=== PATIENT | male | born 1995 | race Caucasian/White ===

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

== ENCOUNTER 2017-10-21 16:57 | Emergency (ER) | payer OTHER ==
--- NOTE | 2017-10-21 17:24 | EDPHY ---
H & P Stated Complaint: wisdom teeth removed, increasing pain Time Seen by Provider: 10/21/17 17:20 HPI/ROS: Chief complaint: Pain after wisdom teeth removal History of present illness: This is a 22-year-old male who presents to the emergency department for evaluation of pain after having his wisdom teeth removed. His to lower wisdom teeth were removed a week ago. Apparently was somewhat traumatic, drill bit did break off and get stuck in his soft tissue. Ultimately removed. States pain is been persistent since then. Initially treated with Percocet and then with Tylenol 3. He has followed up with his oral surgeon who states he has healing well, no recommended follow-up at this time. He denies associated signs or symptoms including no fevers, no trismus, no trouble swallowing or breathing, no facial swelling. - Medical/Surgical History Hx Asthma: No Hx Chronic Respiratory Disease: No Hx Diabetes: No Hx Cardiac Disease: No Hx Renal Disease: No Hx Cirrhosis: No Hx Alcoholism: No Hx HIV/AIDS: No Hx Splenectomy or Spleen Trauma: No Other PMH: Eye surg, hand surg - Social History Smoking Status: Never smoked - Physical Exam Exam: General: Alert, nontoxic Skin: No erythema or edema of the face or neck. ENT: Tympanic membranes, external auditory canals, external ears and surrounding soft tissue including over the mastoids are unremarkable. Nasopharynx is not injected. There is no rhinorrhea. Oropharynx is not injected. There is no edema. There is no exudate. There is no asymmetry. Surgical incisions sites in the mouth appear to be healing well, no pustular discharge. The uvula is midline. No elevation of the tongue. There is no hoarseness, no drooling, no trismus, no stridor. Constitutional: Initial Vital Signs Temperature (C) 36.4 C 10/21/17 17:00 Heart Rate 74 10/21/17 17:00 Respiratory Rate 18 10/21/17 17:00 Blood Pressure 103/83 H 10/21/17 17:00 O2 Sat (%) 97 10/21/17 17:00 O2 Delivery Mode Room Air Allergies/Adverse Reactions: peanut Allergy (Verified 10/21/17 16:59) soy Allergy (Verified 10/21/17 16:59) Home Medications: Medication Instructions Recorded Amoxicillin Trihydrate [Amoxil] 500 mg PO TID 7 Days cap 10/21/17 Hydrocodone/APAP 5/325 [[place] 1 tab PO Q6H #12 tab 10/21/17 5/325 (*)] Medical Decision Making ED Course/Re-evaluation: Patient seen under the supervision of my secondary supervising physician Dr. Cindy Zheng. Patient presents with dental pain after wisdom teeth extraction. He is nontoxic. Given persistence of pain I will start him on amoxicillin for potential infection. Pain management at home has been discussed. He is referred to an oral surgeon or asked to follow up with his oral surgeon. Return precautions were given. Differential Diagnosis: Included but not limited to postoperative pain, dry socket syndrome, infection including abscess formation Departure - Departure Disposition: Home, Routine, Self-Care Clinical Impression: Toothache Condition: Good Instructions: Toothache (ED) Additional Instructions: Please follow-up with an oral surgeon on Monday for recheck In regards to pain control see the following: Use ibuprofen [600] mg [3] times a day for the next 2-3 days for pain In addition You have been prescribed [[place]] for pain. [[place]] contains Tylenol, do not take extra Tylenol/acetaminophen/Apap with it. It is sedating. Take antibiotics as prescribed until finished, I recommend taking a probiotic with the antibiotic such as Culturelle If symptoms worsen or new symptoms develop return to the emergency room for recheck Referrals: NONE *PRIMARY CARE P,. [Primary Care Provider] - As per Instructions Lew Kapoor DDS [Doctor of Dental Surgery] - As per Instructions Prescriptions: Amoxicillin Trihydrate [Amoxil] 500 mg PO TID 7 Days cap Hydrocodone/APAP 5/325 [[place] 5/325 (*)] 1 tab PO Q6H #12 tab
[2017-10-21 17:36] VITALS: BP 110/70
== END 2017-10-21 17:37 | disposition home or self-care (01) ==
DX: K08.89 Other specified disorders of teeth and supporting structures (principal); Z91.010 Allergy to peanuts

== ENCOUNTER 2018-02-03 22:52 | Emergency (ER) | payer OTHER ==
[2018-02-03 23:01] VITALS: BP 114/69
--- NOTE | 2018-02-03 23:07 | EDPHY ---
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[employer] Source: Patient Exam Limitations: No limitations - Personal History Current Tetanus/Diphtheria Vaccine: Yes - Medical/Surgical History Hx Asthma: Yes Hx Chronic Respiratory Disease: No Hx Diabetes: No Hx Cardiac Disease: No Hx Renal Disease: No Hx Cirrhosis: No Hx Alcoholism: No Hx HIV/AIDS: No Hx Splenectomy or Spleen Trauma: No Other PMH: Eye surg, hand surg, BILAT ARM FX: 5 SURGERIES, RIGHT ELBOW, ASTHMA, CONCUSSIONS, ADD - Social History Smoking Status: Never smoked Time Seen by Provider: 02/03/18 23:06 HPI/ROS: HPI: This is a 22-year-old male who presents with Chief Complaint: TRIPPED, ROLLED RIGHT ANKLE, 1 [employer] COUNTY [employer] Location: Right ankle Quality: Injury Duration: 1 hr prior to arrival Signs and Symptoms: No bleeding, no radiation, no numbness, no weakness, no tingling, no incontinence, no decreased range of motion, + swelling, + pain, no fever Timing: acute Severity: Moderate Context: Patient is student at [employer], presents with complaints of right lateral ankle injury prior to arrival. Patient reports that he is walking up the stairs carrying groceries when he accidentally tripped on the stair and fell forward. He is not sure but somehow he twisted his right ankle. He has a history of ankle sprains. He has not attempted to bear weight or ambulate on the right lower extremity. He complains of swelling in the right lateral ankle. Complains of pain as mild in nature nonradiating. Denies LOC/head injury/neck pain/dizziness/nausea/vomiting/amnesia/paresthesias/ radiation/weakness. Modifying Factors: No [id number] pain medications or ice applied Comment: ROS: A comprehensive 10 system review of systems is otherwise negative aside from elements mentioned in the history of present illness. MEDICAL/SURGICAL/SOCIAL HISTORY: Medical/surgical history: Eye surg, hand surg, BILAT ARM FX: 5 SURGERIES, RIGHT ELBOW, ASTHMA, CONCUSSIONS, ADD Social history: Student at [employer]. Never smoked. Denies drug and alcohol use. CONSTITUTIONAL: Polite and cooperative, young adult white male, awake and alert , no obvious distress HEENT: Atraumatic and normocephalic. NECK: supple EXTREMITIES: 2/2 pulses, strength 5/5, right Ankle: Moderate lateral malleolus swelling; Plantar flexion to 50, dorsiflexion to 20. Foot inversion to 35 degree. No tenderness/swelling Anterior talofibular ligament. Moderate tenderness/swelling Calcaneofibular ligament, no tenderness/swelling posterior talofibular ligament, no tenderness/swelling posterior inferior tibiofibular ligament. Achilles tendon intact. DIP/PIP/MCP flexion/extension intact with good light touch sensation. no deformities, no clubbing, no cyanosis or edema. NEUROLOGICAL: no focal neuro deficits. GCS 15. Light touch sensation intact. SKIN: Warm and dry, no erythema. no rash. Good capillary refill. (Komal Cowan) Constitutional: Initial Vital Signs Temperature (C) 36.7 C 02/03/18 22:58 Heart Rate 77 02/03/18 22:58 Respiratory Rate 18 02/03/18 22:58 Blood Pressure 114/69 02/03/18 22:58 O2 Sat (%) 95 02/03/18 22:58 O2 Delivery Mode Room Air Allergies/Adverse Reactions: legumes Allergy (Verified 02/03/18 22:57) peanut Allergy (Verified 10/21/17 16:59) shellfish derived Allergy (Verified 02/03/18 22:57) soy Allergy (Verified 10/21/17 16:59) Home Medications: Medication Instructions Recorded Amox-Clav 500-125 mg Tablet 02/03/18 Trintellix 02/03/18 Medical Decision Making - Diagnostics Imaging Results: Imaging Impressions Ankle X-Ray 02/03/18 23:09 Impression: Negative for fracture. Procedures: Procedure: Splint placement. A right Velcro ankle stirrup splint was applied the Emergency Room bmw service technician. After application of the splint I returned and re-examined the patient. The splint was adequately immobilizing the joint and distal to the splint the patient's circulation and sensation was intact. (Komal Cowan) ED Course/Re-evaluation: Ice pack applied and right ankle x-ray ordered Right ankle x-ray my read via PAC shows no fracture, dislocation.+ soft tissue swelling noted Placed in right ankle Velcro stirrup splint, crutches provided, ortho follow-up as needed No signs of neurovascular compromise/tenting of skin/compartment syndrome/ extremities and joints examined above and below area of concern and are neurovascularly intact. This patient was seen under the supervision of my secondary supervising physician. I evaluated care for this patient independently. Discussed this patient with Dr. Dutton. (Komal Cowan) PHYSICIAN DOCUMENTATION: The patient was evaluated and managed by the Physician Event Coordinator [employer]. My co- signature indicates that I have reviewed this chart and I agree with the findings and plan of care as documented. I am the secondary supervising physician. (Veronica Dutton) Differential Diagnosis: Ankle injury differential diagnosis includes but is not limited to tibia fracture, fibula fracture, metatarsal fracture, LisFranc fracture, achilles tendon rupture, sprain. (Komal Cowan) Departure - Departure Disposition: Home, Routine, Self-Care Clinical Impression: Right ankle sprain Condition: Good Instructions: Ankle Sprain (ED), Crutch Instructions (ED), Ankle Stirrup Splint (ED) Additional Instructions: Wear the ankle Velcro splint while out of bed until pain free. Use crutches to aid ambulation. Start with toe-touch weight-bearing status as directed. Take Tylenol 650 mg every 4 hours and/or Ibuprofen 600 mg every 8 hours with food as needed for pain. Apply ice for 30 minutes at a time; 2-3 times per day for the next 1-2 days. Follow up with Orthopedics in 1-2 weeks if symptoms persist at which time they will evaluate and recommend with you if conservative management versus further imaging is indicated. The x-rays obtained in the emergency department today demonstrate no evidence of an obvious fracture. Sometimes fractures are not obvious on the initial set of x-rays performed in the ED. For this reason, you should have repeat x-rays performed in 7-10 days if you are having any pain exclude the possibility of an occult fracture. Referrals: [facility],. [Clinic] - As per Instructions Armando De La Torre MD [Medical Doctor] - As per Instructions
== END 2018-02-03 23:43 | disposition home or self-care (01) ==
DX: S93.401A Sprain of unspecified ligament of right ankle, initial encounter (principal); W10.8XXA Fall (on) (from) other stairs and steps, initial encounter; Y93.89 Activity, other specified; Y99.9 Unspecified external cause status
CPT/HCPCS: L4350

== ENCOUNTER → 2018-03-29 | Outpatient (CLI) | payer OTHER | LOC: FIMAGING 18:59 | PROVIDERS: ATTEND Registered Nurse | DX: J40 Bronchitis, not specified as acute or chronic (principal) ==

== ENCOUNTER 2018-08-19 15:17 | Emergency (ER) | payer OTHER ==
[2018-08-19] MEDS ORDERED: methylPREDNISolone SOD SUCC 125 MG/2 ML VIAL IVP ONE (15:25)
[2018-08-19] MEDS ORDERED: RANITIDINE 50 MG/2 ML VIAL IVP ONE (15:25)
[2018-08-19] MEDS ORDERED: EPINEPHrine 1 MG/ML INJ IM ONE (15:25)
[2018-08-19] MEDS ORDERED: NS 1,000 ML IV ONE (15:25)
--- NOTE | 2018-08-19 15:45 | EDPHY ---
H & P Time Seen by Provider: 08/19/18 15:25 HPI/ROS: HPI Allergic reaction. 22-year-old male by private vehicle with mother and sisters. This patient has a history of anaphylaxis to peanuts. He reportedly ate a bagel that had been cut with a knife that had peanut butter on it. This occurred about 1 hr prior to arrival. He does carry an EpiPen but did not use it. He presents to the emergency department with complaint of facial swelling/edema which is typical of his initial symptoms from peanut exposure. He denies any significant shortness of breath. No sensation of swelling in his throat. He has had no voice changes. He feels anxious. ROS: Constitutional: No fever, no chills. As above. Eyes: No discharge. No changes in vision. ENT: No sore throat. No nasal congestion or rhinorrhea. Respiratory: No cough. No shortness of breath. Cardiac: No chest pain, no palpitations. Gastrointestinal: No abdominal pain, no vomiting, no diarrhea. Genitourinary: No hematuria. No dysuria or increased frequency with urination. Musculoskeletal: No back pain. No neck pain. No myalgias or arthralgias. Skin: No rashes. As above. Neurological: No headache. No focal weakness or altered sensation. Past medical history: Asthma. As above. Social history: Nonsmoker. Here with his mother and sisters. Physical Exam: General Appearance: Alert, he is not in distress. This patient is responding to questions appropriately and in full sentences. This patient appears well- hydrated and well-nourished. Eyes/face: Pupils equal and round no pallor or injection. No lid edema, erythema or injection. He has a diffuse angioedema primarily involving the right side of his face of right upper and lower lids. There is some involvement of his lips as well and his forehead. ENT, Mouth: Mucous membranes are moist. The pharyngeal tissues are unremarkable. No edema or swelling. No asymmetry suggestive of abscess. No erythema or exudates. No voice changes. No stridor on auscultation of his neck. No cervical, submandibular, submental lymphadenopathy. Respiratory: There are no retractions, lungs are clear to auscultation with good air movement bilaterally. Cardiovascular: Regular rate and rhythm. No murmur. Gastrointestinal: Abdomen is soft and nontender, no masses, bowel sounds normal. No focal tenderness at McBurney's point. No Mckeon sign. Neurological: Motor sensory function is grossly intact. Cranial nerves are normal. Gait is normal. Skin: Warm and dry, no rashes. Musculoskeletal: Neck is supple and nontender. Extremities are symmetrical. All joints range without pain or impingement. Psychiatric: No agitation. No depression. Database: EKG: Imaging: Procedures: Emergency department course: Triage vital signs reviewed and are normal. Room air pulse oximetry is 98%. IV was placed. He was placed on a cardiac technician. He was started on IV normal saline with 500 cc to 1 L to be given over the next hour. He will initially be given 0.3 mL of IM epinephrine as well as 50 mg of IV Benadryl, 50 mg of IV ranitidine and 125 mg of IV Solu-Medrol. 5:00 p.m., the patient was re-evaluated, he is sitting upright on the gurney. His vital signs remained normal. No rashes. His facial edema has decreased significantly. He is feeling better. Repeat pharyngeal exam is normal. Upper airway sounds are clear on auscultation of his neck. No voice changes. 6:00 p.m., patient re-evaluated, resting comfortably. No rash. His facial edema has resolved. Repeat pharyngeal exam is unremarkable. Lung sounds are upper airway sounds are clear. He feels comfortable going home at this time with his mother. His mother feels comfortable taking him home. I will prescribe a short course of prednisone. I also will make recommendations on dosing to Benadryl and Pepcid as needed over the next 2-3 days. Follow-up and return to emergency department precautions discussed with both the patient and his mother. All of their questions were answered. The patient was discharged in good condition. Differential Diagnosis: The differential diagnosis on this patient includes but is not limited to allergic reaction/anaphylaxis. This represents a partial list of diagnoses considered. These considerations are based on history, physical exam, past history, reassessment and diagnostic testing. Smoking Status: Never smoked Constitutional: Initial Vital Signs Temperature (C) 37.0 C 08/19/18 15:19 Heart Rate 91 08/19/18 15:19 Respiratory Rate 16 08/19/18 15:19 Blood Pressure 104/77 08/19/18 15:19 O2 Sat (%) 98 08/19/18 15:19 O2 Delivery Mode Room Air Allergies/Adverse Reactions: legumes Allergy (Verified 02/03/18 22:57) peanut Allergy (Verified 10/21/17 16:59) shellfish derived Allergy (Verified 02/03/18 22:57) soy Allergy (Verified 10/21/17 16:59) Home Medications: Medication Instructions Recorded EPINEPHrine 08/19/18 predniSONE [prednisone 20mg (RX)] 60 mg PO DAILY #9 tab 08/19/18 Medical Decision Making - Data Points Medications Given: Discontinued Medications Diphenhydramine HCl (Benadryl Injection) 50 mg IVP EDNOW ONE Stop: 08/19/18 15:26 Last Admin: 08/19/18 15:28 Dose: 50 mg Epinephrine HCl (Epinephrine) 0.3 mg IM EDNOW ONE Stop: 08/19/18 15:26 Last Admin: 08/19/18 15:27 Dose: 0.3 mg Sodium Chloride (Ns) 1,000 mls @ 0 mls/hr IV ONCE ONE; Wide Open PRN Reason: Protocol Stop: 08/19/18 15:26 Last Admin: 08/19/18 15:30 Dose: 1,000 mls Methylprednisolone Sodium Succinate (Solu-Medrol) 125 mg IVP EDNOW ONE Stop: 08/19/18 15: Last Admin: 08/19/18 15:30 Dose: 125 mg Ranitidine HCl (Zantac) 50 mg IVP EDNOW ONE Stop: 08/19/18 15:26 Last Admin: 08/19/18 15:32 Dose: 50 mg Departure - Departure Disposition: Home, Routine, Self-Care Clinical Impression: Allergic reaction Condition: Good Instructions: Anaphylaxis (ED) Additional Instructions: Read and follow provided instructions. Follow-up with your primary care physician on Monday or Monday of this week as needed. I have prescribed you a short course of prednisone. Take 60 mg daily for 4 days. Benadryl: Take 50 mg every 6-8 hours over the next 2 days. Take as needed for rash or any facial swelling. This medication will make you drowsy. Do not drive while taking this medication. Additional antihistamine, Pepcid; you can take 20 mg twice daily for the next 2- 3 days. Return to the emergency department for worsening symptoms, facial swelling, any sensation of swelling in your throat, difficulty breathing, wheezing or other serious concerns. Referrals: Davis Yoder MD [Primary Care Provider] - As per Instructions Prescriptions: predniSONE [prednisone 20mg (RX)] 60 mg PO DAILY #9 tab
[2018-08-19 18:11] VITALS: BP 105/69
== END 2018-08-19 18:11 | disposition home or self-care (01) ==
DX: M79.89 Other specified soft tissue disorders (principal); T78.01XA Anaphylactic reaction due to peanuts, initial encounter; E86.9 Volume depletion, unspecified
CPT/HCPCS: 96374; J0171; J1200; J2780; J2930